=== PATIENT | female | born 1990 | race American Indian/Alaskan Native ===

== ENCOUNTER 2021-04-24 13:08 | Emergency (ER) | payer OTHER ==
[2021-04-24] MEDS ORDERED: oxyCODONE /ACETAMINOPHEN 5-325MG TAB PO ONE (15:35)
[2021-04-24] MEDS ORDERED: diphenhydrAMINE 25 MG CAP PO ONE (15:36)
[2021-04-24] MEDS ORDERED: METOCLOPRAMIDE 10 MG TAB PO ONE (15:36)
[2021-04-24] MEDS ORDERED: ALUM-MAG HYDROXIDE-SIMETHICONE 200-200-20MG/5ML ORAL LIQD 30 ML PO ONE (15:41)
[2021-04-24] MEDS ORDERED: LIDOCAINE VISCOUS 2% 15 ML ORAL LIQD PO ONE (15:41)
--- NOTE | 2021-04-24 15:42 | Emergency Department Report ---
HPI - General Chief Complaint: Nausea/Vomiting/Diarrhea Time Seen by Provider: 04/24/21 15:19 - HPI HPI: 30-year-old female with history of Crohn's disease on q8-week infusions of unknown medication presents complaining of 3 months of epigastric abdominal pain and daily nausea and vomiting. Patient states that on January 18, 2021 she underwent incarcerated hernia repair at [facility]. She states that since then, she has had constant epigastric pain and nausea with vomiting at least 5 times per day. She says over that period of time she has lost approximately 60 pounds. She has seen both her GI doctor and surgeons who prescribed Zofran and have performed. Extensive work-up including multiple scans of her abdomen which reveal no identifiable etiology for the patient's symptoms. She states that she was prescribed Zofran which she takes intermittently but says it provides only partial or incomplete relief. She is here today because she says she is sick of the pain and nausea and just wants to feel better. Her LMP started yesterday. She is not vaccinated against COVID- 19. She denies any associated fever/chills, headache, vision change, chest pain, cough, shortness of breath, back pain, pelvic pain, nonmenstrual vaginal bleeding, vaginal discharge, dysuria, frequency, focal weakness, sensory changes, or any other complaints. ED Past Medical Hx - Past Medical History Previous Medical History?: Yes Additional medical history: CHRON'S - Surgical History Past Surgical History?: Yes Hx Appendectomy: Yes Additional Surgical History: s/p bowel resection and incaretated hernia repair, multiple abd surgeries - Medications Home Medications: Home Medications Medication Instructions Recorded Confirmed Last Taken Type Metoclopramide [Reglan] 10 mg PO TID PRN #15 tab 04/24/21 Unknown Rx ED Review of Systems ROS: Stated complaint: AB PAIN/VOMITTING Other details as noted in HPI Comment: All other systems reviewed and negative Constitutional: denies: chills, fever Eyes: denies: eye pain, vision change ENT: denies: throat pain, congestion Respiratory: denies: cough, shortness of breath Cardiovascular: denies: chest pain, palpitations Gastrointestinal: abdominal pain, nausea, vomiting. denies: diarrhea, melena Genitourinary: denies: dysuria, frequency, hematuria, discharge Musculoskeletal: denies: back pain, arthralgia Skin: denies: rash, lesions Neurological: denies: headache, weakness, numbness Hematological/Lymphatic: denies: easy bleeding Physical Exam - Physical Exam Vital Signs: Vital Signs 04/24/21 04/24/21 13:54 13:55 Temperature 98.2 F Pulse Rate 91 H Respiratory 18 Rate Blood Pressure 142/93 Blood Pressure 143/80 [Right] O2 Sat by Pulse 100 Oximetry Physical Exam: GENERAL: Well developed and well nourished. No acute distress HEAD: Normocephalic. No obvious signs of trauma. ENT: Moist mucous membranes. EYES: Extraocular movements are intact. Pupils are equal round and reactive to light bilaterally NECK: Supple. Full ROM is intact. Trachea is midline. LUNGS: Nonlabored breathing. Equal chest rise bilaterally. Clear to auscultation bilaterally. CARDIOVASCULAR: Regular rate and rhythm. No murmurs or rubs. VASCULAR: Cap refill < 2 seconds ABDOMEN: Abdomen is soft and nondistended. There are multiple well-healed abdominal scars. There is slight tenderness to palpation of the epigastrium and left upper quadrant but no guarding or rebound tenderness. SKIN: Skin is warm and dry NEURO: Patient is awake, alert, and oriented. beach expert II-XII grossly intact. No focal deficits. Normal motor and sensory exam throughout. Normal speech. MUSCULOSKELETAL: No obvious deformities. No significant tenderness. Normal ROM throughout. BACK/SPINE: No costovertebral angle tenderness. ED Course Vital Signs 04/24/21 04/24/21 13:54 13:55 Temperature 98.2 F Pulse Rate 91 H Respiratory 18 Rate Blood Pressure 142/93 Blood Pressure 143/80 [Right] O2 Sat by Pulse 100 Oximetry ED Medical Decision Making - Lab Data Result diagrams: 04/24/21 16:06 04/24/21 16:06 - Medical Decision Making 30-year-old female with Crohn's disease presenting with 3 months of constant epigastric abdominal pain and nausea vomiting. She is here today for relief. She has had multiple abdominal scans performed which revealed no medical etiol ogy for her symptoms. She has followed up with her GI and general surgery doctors regarding this issue. She is afebrile and with normal vital signs. On physical examination she has moist mucous membranes. She is in no acute distress. There is slight tenderness to palpation of the epigastrium and left upper quadrant without guarding or rebound tenderness. Given that the patient has already undergone extensive imaging of her abdomen I do not feel that there is utility in further imaging at this point. We will send a full set of labs and give Reglan and Bentyl as well as GI cocktail and reassess. Labs reveal no significant leukocytosis or anemia. Kidney function is normal. There is hypokalemia with potassium of 3.0 and hypomagnesemia with magnesium level of 1.4. CO2 is 26, consistent with chronic vomiting. We will give 1 L of IV fluids and potassium/magnesium repletion. On repeat assessment, patient feels much improved. She feels okay to go home. I encouraged her to follow-up with her primary care doctor regarding this issue due to her hypokalemia and hypomagnesemia. I will prescribe a small amount of Reglan for which I advised her that the risk of dystonic reaction. I also educated her about the treatment with Benadryl. I encouraged her to return to the emergency department should she develop worsening symptoms or new health concerns. The patient expressed understanding agreement with the plan of care. Critical care attestation.: If time is entered above; I have spent that time in minutes in the direct care of this critically ill patient, excluding procedure time. ED Disposition Clinical Impression: Hypokalemia, Hypomagnesemia, Crohn's disease, Chronic nausea Disposition: 01 HOME / SELF CARE / HOMELESS Is pt being admited?: No Condition: Stable Instructions: Nausea and Vomiting, Adult, Potassium Content of Foods, Hypokalemia, Hypomagnesemia Additional Instructions: Please follow-up with your doctor regarding your chronic nausea/vomiting and abdominal pain. Your labs showed hypokalemia and hypomagnesemia. You should follow-up so that you can have repeat labs in the next few days to ensure that you you do not have worsening electrolyte abnormalities. Return to the emergency department any point should you develop worsening symptoms or new health concerns. Prescriptions: Metoclopramide [Reglan] 10 mg PO TID PRN #15 tab PRN Reason: Nausea And Vomiting
[2021-04-24] MEDS: DICYCLOMINE 20 MG TAB PO ONE ×2 (15:51→17:28)
[2021-04-24 16:23] LABS: Basophils # (Auto) 0.1 K/mm3 (0.0-0.1); Basophils % (Auto) 1.1 % (0.0-1.8); Eosinophils # (Auto) 0.2 K/mm3 (0.0-0.4); Eosinophils % (Auto) 2.5 % (0.0-4.3); Hematocrit 34.5 % (30.3-42.9); Hemoglobin 10.9 gm/dl (10.1-14.3); Lymphocytes # (Auto) 1.5 K/mm3 (1.2-5.4); Lymphocytes % (Auto) 19.9 % (13.4-35.0); Mean Corpuscular HGB Conc 32 % (30-34); Mean Corpuscular Volume 81 fl (79-97); Monocytes # (Auto) 0.6 K/mm3 (0.0-0.8); Monocytes % (Auto) 7.9 % (0.0-7.3); Platelet Count 351 K/mm3 (140-440); Red Blood Count 4.28 M/mm3 (3.65-5.03); Red Cell Distribution Width 16.1 % (13.2-15.2)
[2021-04-24 17:00] LABS: Alanine Aminotransferase 8 units/L (7-56); Albumin 3.8 g/dL (3.9-5); Blood Urea Nitrogen 3 mg/dL (7-17); Calcium 9.1 mg/dL (8.4-10.2); Hemolysis Index 4
[2021-04-24 17:17] LABS: BUN/Creatinine Ratio 6; Bilirubin,Direct < 0.2 mg/dL (0-0.2)
[2021-04-24] MEDS ORDERED: SODIUM CHLORIDE 0.9% 1000 ML 1,000 ML IV ONE (17:17)
[2021-04-24] MEDS ORDERED: MAGNESIUM SULFATE 2 GM/50 ML BAG IV ONE (17:18)
[2021-04-24] MEDS ORDERED: POTASSIUM CHLORIDE ER 20 MEQ TAB PO ONE (17:18)
[2021-04-24] MEDS ORDERED: HYDROmorphone 1 MG/1 ML INJ IV ONE (19:19)
[2021-04-25 06:03] VITALS: BP 158/94
== END 2021-04-24 20:14 | disposition home or self-care (01) ==
LOC: ED 13:08
DX: E87.6 Hypokalemia (principal); E83.42 Hypomagnesemia; R11.2 Nausea with vomiting, unspecified; K50.90 Crohn's disease, unspecified, without complications; Z98.890 Other specified postprocedural states
CPT/HCPCS: 36415; 80048; 80076; 83690; 83735; 84703; 85025; 96361; 96365; 96375; 99283; J1170; J3475; J7030; 96374; Q0162